=== PATIENT | female | born 1960 | race Caucasian/White ===

== ENCOUNTER 2016-08-03 10:40 | Observation (INO) | payer BC ==
[~2016-08-03] VITALS: Ht 167.6 cm; Wt 106.5 kg
[~2016-08-03 10:40] MED LIST: ADULT LOW DOSE81 M1 PO; AMBIEN10 MG PO; ANTIVERT25 MG PO; B-121500 MCG PO; BENTYL20 MG PO; CALCIUM 600 +1 EACH PO; CENTRUM SILVER1 EAC3 PO; CIPRO500 MG PO; CO Q-10200 MG PO; DIOVAN320 MG PO; FIORICET,ESG1 TABLET PO; FLOVENT DISKUS1 DIS2 IH; GLUCOPHAGE1000 MG PO; HUMALOG100 UNIT/2 SC; HYDROCHLOROTHIA25 MG PO; LANTUS 3 M100 UNITS1 SC; MAGNESIUM250 M1 PO; NEXIUM40 MG PO; PYRIDIUM100 MG PO; REQUIP1 MG PO; TRICOR145 MG PO; VENTOLIN HFA18 GM IH; VITAMIN D5000 UNI1 PO; VITAMIN E400 UNIT PO; WELCHOL625 MG PO; ZETIA10 MG PO; ZOLOFT50 MG PO; ZYRTEC10 M2; ZYRTEC10 M2 PO
[2016-08-03 12:02] LABS: HEMATOCRIT 43.9 % (36.0-46.0); MCH 31.3 PG (29.0-34.0); MCHC 34.6 G/DL (30.0-36.0); MCV 90.3 FL (83-99); MEAN PLAT.VOLUME 10.3 uM^3 (9.5-12.4); PLATELET COUNT 222 K/uL (156-360); RBC DIS.WIDTH-CV 12.8 % (11.8-14.6); RBC DIS.WIDTH-SD 41.6 % (39-53); RED BLOOD COUNT 4.86 M/uL (3.80-5.20); WHITE BLOOD COUNT 8.3 K/uL (4.1-10.2)
[2016-08-03 12:14] LABS: CHLORIDE 101 mEq/L (99-109); POTASSIUM 3.9 mEq/L (3.7-5.4); SODIUM 142 mEq/L (136-147)
[2016-08-03 12:16] LABS: GLUCOSE 117 mg/dL (70-99)
[2016-08-03 12:18] LABS: ANION GAP 11 MEQ/L (2-14)
[2016-08-03 12:20] LABS: GFR ESTIMATE (CALCULATED) > 59 mL/min/
[2016-08-03 12:21] LABS: UREA NITROGEN (BUN) 14 mg/dL (9-23)
[2016-08-03 12:30] LABS: TROP-I INTERPRETATION NEGATIVE; TROPONIN-I < 0.01 ng/mL (0.0-0.30)
[2016-08-03] MEDS ORDERED: GLUCOPHAGE500 MG PO (15:25)
[2016-08-03] MEDS ORDERED: EXTRA STRENGTH500 M1 PO (15:33)
[2016-08-03] MEDS ORDERED: ASPIRIN325 MG PO (15:33)
[2016-08-03] MEDS ORDERED: MOTRIN IB200 MG PO (15:34)
[2016-08-03] MEDS ORDERED: FLONASE16 G1 BOTH NARES (15:35)
[2016-08-03] MEDS ORDERED: NOVOLOG PE100 UNITS/ SC (15:36)
[2016-08-03] MEDS ORDERED: COD LIVER OIL118 ML PO (15:37)
[2016-08-03 16:14] VITALS: BP 150/73
[2016-08-03 17:30] LABS: POINT-OF-CARE METER ID UU14162513
[2016-08-03 18:06] LABS: TROP-I INTERPRETATION NEGATIVE; TROPONIN-I < 0.01 ng/mL (0.0-0.30)
[2016-08-03 19:33] VITALS: BP 140/67
[2016-08-03 22:08] LABS: POINT-OF-CARE METER ID UU14162513
[2016-08-04 00:18] VITALS: BP 107/53
[2016-08-04 00:52] LABS: TROP-I INTERPRETATION NEGATIVE; TROPONIN-I < 0.01 ng/mL (0.0-0.30)
[2016-08-04 02:27] LABS: POINT-OF-CARE METER ID UU13113700
[2016-08-04 04:25] VITALS: BP 126/64
[2016-08-04 06:29] LABS: POINT-OF-CARE METER ID UU13113831
[2016-08-04 07:51] VITALS: BP 139/74
[2016-08-04] MEDS ORDERED: AMLODIPINE BESYL5 MG PO (10:39)
[2016-08-04 11:28] LABS: D-DIMER ELISA 0.23 mg/L FEU (< 0.57)
[2016-08-04 11:32] LABS: POINT-OF-CARE METER ID UU13113700
[2016-08-04 12:00] VITALS: BP 107/56
== END 2016-08-04 13:00 | disposition home or self-care (01) ==
LOC: EME 10:40 → EXP 10:40 → 5WEST 14:16 → EDOF 14:16 → 5WEST 16:01
PROVIDERS: Hospitalist; Physician Assistant Medical
DX: R07.89 Other chest pain (principal); I16.9 Hypertensive crisis, unspecified; I10 Essential (primary) hypertension; R94.31 Abnormal electrocardiogram [ECG] [EKG]; E11.9 Type 2 diabetes mellitus without complications; E78.5 Hyperlipidemia, unspecified; R51 Headache; M54.2 Cervicalgia; G89.29 Other chronic pain; E66.9 Obesity, unspecified; Z68.37 Body mass index [BMI] 37.0-37.9, adult; Z79.4 Long term (current) use of insulin; Z77.22 Contact with and (suspected) exposure to environmental tobacco smoke (acute) (chronic); Z79.82 Long term (current) use of aspirin; Z82.49 Family history of ischemic heart disease and other diseases of the circulatory system; Z83.3 Family history of diabetes mellitus
CPT/HCPCS: 71020; 80048; 82948; 84484; 85027; 85379; 93005; 99281; 99285; G0378; J1815

== ENCOUNTER 2017-07-23 18:12 | Emergency (ER) | payer OTHER ==
[~2017-07-23] VITALS: Ht 160 cm; Wt 114.5 kg
[~2017-07-23 18:12] MED LIST changes: +AMLODIPINE BESYL5 MG PO; +ASPIRIN325 MG PO; +COD LIVER OIL118 ML PO; +EXTRA STRENGTH500 M1 PO; +FLONASE16 G1 BOTH NARES; +GLUCOPHAGE500 MG PO; +MOTRIN IB200 MG PO; +NOVOLOG PE100 UNITS/ SC
[2017-07-23] MEDS ORDERED: MOTRIN800 MG PO (21:05)
[2017-07-23] MEDS ORDERED: NORCO 10/3251 TABLET PO (21:05)
[2017-07-23 21:39] VITALS: BP 150/72
== END 2017-07-23 21:42 | disposition home or self-care (01) ==
LOC: EME 18:12
DX: M76.892 Other specified enthesopathies of left lower limb, excluding foot (principal); W01.0XXA Fall on same level from slipping, tripping and stumbling without subsequent striking against object, initial encounter; R03.0 Elevated blood-pressure reading, without diagnosis of hypertension; K21.9 Gastro-esophageal reflux disease without esophagitis; I10 Essential (primary) hypertension; F41.9 Anxiety disorder, unspecified; E78.5 Hyperlipidemia, unspecified; E11.9 Type 2 diabetes mellitus without complications; F32.9 Major depressive disorder, single episode, unspecified; J45.909 Unspecified asthma, uncomplicated; Z79.4 Long term (current) use of insulin; Z79.82 Long term (current) use of aspirin
CPT/HCPCS: 99281; 99284; J3010